=== PATIENT | male | born 1960 | race African-American/Black ===

== ENCOUNTER 2022-06-21 13:49 | Observation (INO) ==
[2022-06-21 14:37] LABS: ABS Eosinophils 0.2 10^3/ul (0-0.6); ABS Lymphocytes 2.1 10^3/ul (1.0-4.8); ABS Monocytes 0.5 10^3/ul (0-0.8); ABS Neutrophils 3.2 10^3/ul (1.5-7.7); Eosinophil % 3.2 %; Hematocrit 41 % (42-52); Lymphocyte % 34.1 %; Mean Corpuscular HGB Conc 32 g/dL (31-36); Mean Corpuscular Hemoglobin 27 pg (27-31); Mean Corpuscular Volume 84 fL (80-94); Mean Platelet Volume 8.3 fL (7.4-10.4); Nucleated Red Blood Cells % 0.1; Platelet Count 189 10^3/uL (150-450); Red Blood Count 4.85 10^6 /uL (4.18-5.48); Red Cell Distribution Width 14 % (10-15)
[2022-06-21 14:43] LABS: INR 1.1 (0.89-1.11)
[2022-06-21 15:31] LABS: Albumin 4.1 g/dL (3.2-5.2); Albumin/Globulin Ratio 1.6 (1-3); Calcium 9.4 mg/dL (8.6-10.3); Globulin 2.5 g/dL (2-4); Magnesium 1.5 mg/dL (1.9-2.7); Potassium 4.3 mmol/L (3.5-5.0); Total Bilirubin 0.3 mg/dL (0.2-1.0); Total Protein 6.6 g/dL (6.4-8.9)
[2022-06-21 16:04] LABS: High Sensitivity Troponin 1 Hr 6 pg/mL (<20)
[2022-06-21] MEDS ORDERED: Dextrose 50% Syringe 50 ml 25 GM/50 ML SYRINGE IV PUSH PRN (17:22)
[2022-06-21 17:47] LABS: C Reactive Protein 2.41 mg/L (<8.01)
[2022-06-21] MEDS: Enoxaparin 40 MG/0.4 ML SYR SUBCUT SCH (18:08)
[2022-06-21 18:34] LABS: Erythrocyte Sed Rate 6 mm/Hr (0-19)
[2022-06-21] MEDS ORDERED: Nicotine Lozenge mini 4 MG LOZNG.MINI MT PRN (19:19)
[2022-06-21] MEDS ORDERED: Magnesium Sulfate IV 3 GM in NS 0.9% 100 ml BAG 100 ML IVPB ONE (19:28)
[2022-06-21 19:49] LABS: HDL Cholesterol 48.5 mg/dL
[2022-06-21] MEDS ORDERED: Insulin GLARGINE 100 un/ml 10 ml VIAL SUBCUT SCH (21:00)
[2022-06-22 04:38] VITALS: BP 158/74
[2022-06-22 07:06] LABS: Calcium 9.8 mg/dL (8.6-10.3); Magnesium 1.8 mg/dL (1.9-2.7); Potassium 3.9 mmol/L (3.5-5.0)
[2022-06-22 10:01] LABS: Ferritin 55.4 ng/mL (24-336)
[2022-06-22] MEDS ORDERED: Regadenoson 0.4 MG/5 ML SYRINGE ONE (12:26)
[2022-06-22] MEDS: Enoxaparin 40 MG/0.4 ML SYR SUBCUT SCH (17:58)
== END 2022-06-22 17:55 | disposition home or self-care (01) ==
LOC: EDHOLD 13:49 → ED 13:49 → EDHOLD 20:42 → MEDTELE 20:45
PROVIDERS: ADMIT Internal Medicine; ATTEND Internal Medicine